=== PATIENT | female | born 1965 | race Caucasian/White ===

== ENCOUNTER → 2017-06-18 | Outpatient (CLI) | payer OTHER ==
[~2017-06-18] MED LIST: ACE3 PO; ALL300 PO; ESC10 PO; HYDR-2966 PO; IBU800 PO; LEVO25TA61 PO; MULT-820 PO; POTA-35 PO
--- NOTE | 2017-06-19 08:26 | RADIOLOGY IMAGING REPORT ---
FACILITY: [facility] - [place] PATIENT NAME: IKE SCHMITZ : [id number] MR: [id number] V: [id number] EXAM DATE: [id number] ORDERING PHYSICIAN: JELANI ANDRES TECHNOLOGIST: Charmaine Ayala PROCEDURE:BILATERAL DIGITAL SCREENING MAMMOGRAM WITH CAD ASSISTED INTERPRETATION AND 3D BREAST TOMOSYNTHESIS. COMPARISON:Prior mammograms dated 06/13/16, 06/12/15, 06/12/14, 06/07/13 and 05/31/13. INDICATIONS:SCREENING FINDINGS: Moderately heterogeneous fibroglandular tissue is seen throughout the breasts. The parenchymal pattern has remained stable when allowing for difference in mammographic technique and patient positioning. There is no evidence of malignant appearing mass, malignant appearing calcification or other secondary sign of malignancy in either breast. DIAGNOSTIC CATEGORY 1--NEGATIVE. RECOMMENDATIONS: ROUTINE MAMMOGRAM AND CLINICAL EVALUATION. IMPRESSION: Bi-RADS 1: No significant abnormality is seen. Images were reviewed with R2CAD and 3D breast tomosynthesis. Dictated by: Belinda Lawrence M.D. on 06/18/2017 at 15:51 Transcribed by: DARREL on 06/18/2017 at 15:55 Approved by: Belinda Lawrence M.D. on 06/19/2017 at 8:25 [facility]
== END ==
LOC: MAMO 01:07
PROVIDERS: ATTEND Family Medicine
DX: Z12.31 Encounter for screening mammogram for malignant neoplasm of breast (principal)
CPT/HCPCS: 77063; 77067

== ENCOUNTER → 2018-04-20 | Outpatient (CLI) | payer OTHER ==
--- NOTE | 2018-04-20 14:54 | RADIOLOGY IMAGING REPORT ---
FACILITY: [facility] PATIENT NAME: Yusra Cagle : 1965 MR: [id number] V: [id number] EXAM DATE: ORDERING PHYSICIAN: INES MICHELE TECHNOLOGIST: Location: [facility] Patient: Yusra Cagle : 1965 Visit/Account:[id number] Date of Sevice: 04/20/2018 ABDOMEN PELVIS ESWL CYSTO W/O COMPARISON: None. HISTORY: Nephrolithiasis.. TECHNIQUE: Axial CT abdomen and pelvis without intravenous contrast. Coronal and sagittal reformats . One of the following dose optimization techniques was utilized in the performance of this exam: auto mated exposure control; adjustment of the mA and/or kV according to patient size; or use of iterative reconstruction technique. Specific details can be referenced in the facility's radiology CT exam op erational policy. CONTRAST: No intravenous contrast. FINDINGS: Lack of IV contrast limits assessment of the liver and other solid organs for subtle pathology. Withi n these limitations, the following observations are made: LUNG BASES: Unremarkable. LIVER: Unremarkable. BILIARY: There are cholecystectomy clips in the gallbladder fossa. No intra- or extrahepatic bile duct dilatation. SPLEEN: Granulomatous calcifications from old healed infection. PANCREAS: Unremarkable. Limited assessment by noncontrast CT. No focal enlargement to suggest the p resence of a mass. No evidence of acute pancreatitis. ADRENALS: Unremarkable. KIDNEYS: Numerous nonobstructive stones in the right kidney measuring 1 mm in size or less, probably about six total based on coronal reformats. No definite stones in the left kidney. No hydronephros is or perinephric fluid or fat stranding. As a 6 mm water density partially exophytic lesion at the left kidney lower pole posteriorly which is probably a cyst. In the right mid kidney on series 5 timothy ge 147 there is an approximate 2-3 mm focus of low density suspicious for fat although it is technica lly too small to accurately characterize. This is a probable angiomyolipoma. GI/MESENTERY: Sigmoid diverticulosis. Normal appendix. No localized formation. No visible mass, o bstruction, or bowel wall thickening. VASCULAR: Minimal vascular calcifications. LYMPH NODES: Unremarkable. No significantly enlarged lymph nodes. BLADDER: Unremarkable. No visible focal wall thickening, appreciable lesion, or calculus. PELVIC ORGANS: Unremarkable uterus and ovaries. BONES: Mild thoracic and lumbar spine degenerative changes with moderate degenerative disc disease a nd endplate spurring at L5-S1 causing mild to moderate bilateral foraminal stenosis.No acute-appearin g fracture or suspicious osseous lesion. OTHER: Negative. IMPRESSION: 1. Numerous punctate nonobstructive stones in the right kidney. No obstructive uropathy. No apprec iable stones in the left kidney, bladder or in either ureter. 2. 2-3 mm too small to characterize hypodensity in the right kidney, suspected angiomyolipoma. 3. 6 mm water density left renal lesion, probable cyst. 4. Prior cholecystectomy 5. Mild sigmoid diverticulosis. Report Dictated By: Carlos Gann at 04/20/2018 2:36 PM Report E-Signed By: Carlos Gann at 04/20/2018 2:49 PM WSN:[id number]
== END ==
LOC: CT 00:39
PROVIDERS: ATTEND Urology
DX: N20.0 Calculus of kidney (principal); K57.30 Diverticulosis of large intestine without perforation or abscess without bleeding
CPT/HCPCS: 74176

== ENCOUNTER → 2018-06-29 | Outpatient (CLI) | payer OTHER ==
--- NOTE | 2018-07-01 08:30 | RADIOLOGY IMAGING REPORT ---
FACILITY: [facility] - [place] PATIENT NAME: IKE SCHMITZ : [id number] MR: [id number] V: [id number] EXAM DATE: ORDERING PHYSICIAN: JELANI ANRDES TECHNOLOGIST: Charmaine Ayala PROCEDURE:BILATERAL DIGITAL SCREENING MAMMOGRAM WITH CAD ASSISTED INTERPRETATION & 3D TOMOSYNTHESIS COMPARISON:Prior mammograms dated 06/18/17, 06/13/16, 06/12/15, 06/12/14, 06/07/13 INDICATIONS:SCREENING FINDINGS: The breasts are heterogeneously dense which can obscure small masses. The parenchymal pattern has remained stable allowing for difference in mammographic technique & patient positioning. DIAGNOSTIC CATEGORY 1--NEGATIVE. RECOMMENDATIONS: ROUTINE MAMMOGRAM AND CLINICAL EVALUATION. IMPRESSION: BIRADS 1: Negative. No significant abnormality is seen. Dictated by: Belinda Lawrence M.D. on 06/29/2018 at 17:03 Transcribed by: JONATHAN on 06/30/2018 at 13:41 Approved by: Belinda Lawrence M.D. on 07/01/2018 at 8:29 [facility]
== END ==
LOC: MAMO 01:06
PROVIDERS: ATTEND Family Medicine
DX: Z12.31 Encounter for screening mammogram for malignant neoplasm of breast (principal)
CPT/HCPCS: 77063; 77067